=== PATIENT | female | born 1995 ===

== ENCOUNTER 2017-06-17 16:15 | Emergency (ER) | payer MEDICAID ==
[2017-06-17 16:24] VITALS: BP 125/87; TEMP 97.4
--- NOTE | 2017-06-17 17:07 | C.PDOC ---
History Of Present Illness 22 y/o F s/p elective 3 weeks prior and following D&C p/w lightheadedness/dizziness and feeling of decreased breathing. Patient was having menstrual cramps today and her gave her his prescribed Ultram 100mg. The patient had never taken this medication before. She denies nausea, vomiting, abdominal pain, dysuria. Time Seen by Provider: 06/17/17 16:54 Chief Complaint (Nursing): Medical Clearance Past Medical History Vital Signs: Last Vital Signs Temp 97.4 F L 06/17/17 16:19 Pulse 79 06/17/17 16:19 Resp 18 06/17/17 16:19 BP 125/87 06/17/17 16:19 Pulse Ox 100 06/17/17 17:29 - Medical History PMH: Anxiety, Asthma Surgical History: Tonsillectomy Family History: States: No Known Family Hx - Social History Hx Alcohol Use: No Hx Substance Use: No - Immunization History Hx Tetanus Toxoid Vaccination: No Hx Influenza Vaccination: No Hx Pneumococcal Vaccination: No Review Of Systems Except As Marked, All Systems Reviewed And Found Negative. Constitutional: Negative for: Fever Cardiovascular: Negative for: Chest Pain Physical Exam - Physical Exam Additional Physical Exam Comments: Gen: Appears lightheaded. Head: Normocephalic, atraumatic. Eyes: PERRL. EOMI. ENT: Moist mucous membranes. Neck: Supple. Chest: No tenderness. CV: Regular rate. Radial pulses 2+ bilaterally. Resp: Clear to auscultation bilaterally. Abd: Soft, nontender, nondistended. Extremities: No swelling or tenderness. Skin: No rash. Neuro: Alert, no focal deficit. ED Course And Treatment O2 Sat by Pulse Oximetry: 100 Medical Decision Making Medical Decision Making: Patient's clinical presentation consistent with side effects of tramadol to which patient was previously naive. Will observe in ED for improvement, CXR to evaluate for lung pathology. Vital signs normal. Breathing spontaneously. CXR Results HISTORY: lightheaded COMPARISON: No prior. FINDINGS: LUNGS: No active pulmonary disease. PLEURA: No significant pleural effusion identified, no pneumothorax apparent. CARDIOVASCULAR: Normal. OSSEOUS STRUCTURES: No significant abnormalities. VISUALIZED UPPER ABDOMEN: Normal. OTHER FINDINGS: None. IMPRESSION: No active disease. Patient observed for over 2 hours, now awake, alert, steady gait, feels much better and would like to go home. Disposition - Disposition Disposition: HOME/ ROUTINE Disposition Time: 18:33 Condition: STABLE Instructions: Tramadol (By mouth) Forms: [facility] (Indonesian) - Clinical Impression Clinical Impression: Medication side effect
--- NOTE | 2017-06-17 17:27 | RAD ---
HISTORY: lightheaded COMPARISON: No prior. FINDINGS: LUNGS: No active pulmonary disease. PLEURA: No significant pleural effusion identified, no pneumothorax apparent. CARDIOVASCULAR: Normal. OSSEOUS STRUCTURES: No significant abnormalities. VISUALIZED UPPER ABDOMEN: Normal. OTHER FINDINGS: None. IMPRESSION: No active disease.
[2017-06-17 18:57] VITALS: PULSE 68; RESP 20; O2SAT 99
== END 2017-06-17 18:55 | disposition home or self-care (01) ==
LOC: C.ER 16:15
DX: T88.7XXA Unspecified adverse effect of drug or medicament, initial encounter (principal); T40.4X5A Adverse effect of other synthetic narcotics, initial encounter; Y92.89 Other specified places as the place of occurrence of the external cause